=== PATIENT | female | born 2005 | race Caucasian/White ===

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

== ENCOUNTER 2024-02-12 19:42 | Outpatient (REF) | payer OTHER, SELFPAY | END 2024-02-12 19:43 | disposition home or self-care (01) | LOC: LBN 19:42 | PROVIDERS: PCP Nurse Practitioner Family; Visit Provider Nurse Practitioner Family | DX: J35.1 Hypertrophy of tonsils (principal) | CPT/HCPCS: 87070 ==